=== PATIENT | female | born 1990 | race Caucasian/White ===

== ENCOUNTER 2017-11-14 17:27 | Day surgery (SDC) | payer OTHER ==
[~2017-11-14] VITALS: Ht 160 cm; Wt 104.2 kg
--- NOTE | 2017-11-14 17:44 | ED PDOC ---
Post-Departure Follow-Up patient seen by Dr. Alatorre upon arrival - not seen by ED provider Alexandra Avelar MD Nov 14, 2017 17:44
[2017-11-14] MEDS ORDERED: LR 1,000 ML IV SCH ×2 (17:45→23:52)
[2017-11-14 19:26] LABS: ANION GAP 7 MEQ/L (8-16); BLOOD UREA NITROGEN 15 MG/DL (7-18); CALCIUM LEVEL 8.7 MG/DL (8.5-10.1); CARBON DIOXIDE LEVEL 27 MEQ/L (21-32); CHLORIDE LEVEL 103 MEQ/L (98-107); CREATININE FOR GFR 0.49 MG/DL (0.55-1.02); GLOMERULAR FILTRATION RATE > 60.0 (>60); GLUCOSE, FASTING 69 MG/DL (70-105); POTASSIUM SERUM 3.9 MEQ/L (3.5-5.1); SODIUM LEVEL 137 MEQ/L (136-145)
[2017-11-14 20:24] LABS: MEAN CORPUSCULAR HEMOGLOBIN 30.9 pg (27.0-33.0); MEAN CORPUSCULAR HGB CONC 34.9 g/dl (32.0-36.5); MEAN CORPUSCULAR VOLUME 88.6 fl (80.0-96.0); PLATELET COUNT, AUTOMATED 228 10^3/uL (150-450); RED CELL DISTRIBUTION WIDTH 12.1 % (11.5-14.5); WHITE BLOOD COUNT 8.6 10^3/uL (4.0-10.0)
[2017-11-14] MEDS ORDERED: LIDOCAINE 2% INJ 100 MG/5 ML SYRINGE As Ordered ONE (21:51)
[2017-11-14] MEDS ORDERED: MIDAZOLAM INJ 2 MG/2 ML VIAL (J2250) As Ordered ONE (21:51)
[2017-11-14] MEDS ORDERED: NEOSTIGMINE 10 MG/10 ML VIAL (J2710) As Ordered ONE (21:51)
[2017-11-14] MEDS ORDERED: fentaNYL 100 MCG/2 ML INJECTION (J3010) As Ordered ONE ×2 (21:51→23:47)
[2017-11-14] MEDS ORDERED: KETOROLAC 60 MG/2 ML VIAL (J1885) As Ordered ONE (21:51)
[2017-11-14] MEDS ORDERED: ONDANSETRON 4MG/2ML VIAL (J2405) As Ordered ONE (21:51)
[2017-11-14] MEDS ORDERED: GLYCOPYRROLATE INJ 0.2 MG/ML 2 ML VIAL As Ordered ONE (21:51)
[2017-11-14] MEDS ORDERED: dexameTHASONE 4 MG/ML 1ML VIAL (J1100) As Ordered ONE (21:51)
[2017-11-14] MEDS ORDERED: PROPOFOL 200 MG/20 ML VIAL As Ordered ONE (21:51)
[2017-11-14] MEDS ORDERED: ROCURONIUM BROMIDE 50 MG/5 ML VIAL As Ordered ONE ×2 (21:51→22:51)
[2017-11-14] MEDS ORDERED: MORPHINE 10 MG/ML 1ML VIAL As Ordered ONE (22:08)
[2017-11-15] MEDS ORDERED: MORPHINE 10 MG/ML 1ML VIAL IV PRN (00:15)
[2017-11-15] MEDS ORDERED: LR 1,000 ML IV SCH (00:15)
[2017-11-15] MEDS ORDERED: PERCOCET 5MG/325MG TAB PO PRN ×3 (00:15)
[2017-11-15] MEDS ORDERED: ONDANSETRON 4MG/2ML VIAL (J2405) IV PRN ×2 (00:15)
[2017-11-15] MEDS ORDERED: fentaNYL 100 MCG/2 ML INJECTION (J3010) IV PRN (00:15)
[2017-11-15 01:30] VITALS: BP 127/65
[2017-11-15 02:00] VITALS: BP 122/62
[2017-11-15 02:30] VITALS: BP 125/70
[2017-11-15 04:00] VITALS: BP 130/72
[2017-11-15] MEDS ORDERED: KETOROLAC 30 MG/ML VIAL (J1885) IV SCH ×2 (06:00)
[2017-11-15] MEDS ORDERED: DOCUSATE SODIUM 100 MG CAP PO SCH (09:00)
[2017-11-15] MEDS ORDERED: OXYC1TAB23 PO ×2 (14:44→18:28)
[2017-11-15] MEDS ORDERED: IBUP-1114 PO (14:44)
[2017-11-15] MEDS ORDERED: COLA100C5 PO (14:46)
[2017-11-15] MEDS ORDERED: PROAAER10 INH (18:28)
[2017-11-15] MEDS ORDERED: E-ZMIS3 XX (18:28)
--- NOTE | 2017-11-20 20:50 | RO ---
DATE OF PROCEDURE: 11/14/2017 PREOPERATIVE DIAGNOSIS: Right adnexal ectopic . POSTOPERATIVE DIAGNOSIS: Right ovarian ectopic . OPERATIVE PROCEDURE: Operative laparoscopy with eventual right oophorectomy. SURGEON: Ministerio Alatorre MD BRIMMER BLOCKER: Suzy Anglin MD ANESTHESIA: General endotracheal. ESTIMATED BLOOD LOSS: 200 mL or organized clot, all removed. DRAINS: 500 mL of clear urine in the Miller catheter. FLUID REPLACEMENT: 1800 mL of lactated Ringer's. PREOPERATIVE ANTIBIOTICS: None. SPECIMENS: Right ovary with obvious right ectopic . FINDINGS: Omental adhesions from her prior laparoscopic cholecystectomy, normal tubes bilaterally, 4 cm simple cyst on the left ovary, obvious right ovarian ectopic . INDICATION: Patient was seen on 11/14/2017 in the clinic for a routine first trimester ultrasound to confirm due date when the scan was noted to be obviously abnormal. The scan was repeated formally at [facility], and they found a right adnexal ectopic with a measurable pole and heart rate of 141. Counseled and consented to undergo operative laparoscopy and likely removal of the right fallopian tube. DESCRIPTION OF PROCEDURE: Patient was taken to the operating room after informed consent was obtained, and general endotracheal anesthesia was easily obtained. She was placed in dorsal lithotomy position, and a gentle exam under anesthesia was performed. This was normal without either fullness on right or left ovary noticeable, however, also limited due to her obesity. She was prepped and draped in normal sterile fashion. I placed a Hulka uterine manipulator without difficulty for need for cervical dilatation. I then placed a Miller catheter, changed my gloves and turned my attention to the abdomen. The table was brought all the way down to waist level and flattened out. Just under the umbilicus she was injected with approximately 3 mL of 0.25% Marcaine, no epinephrine. A small 5 mm incision just under the umbilicus was made and the trocar was placed into the abdomen directly with visualization of each layer. Intraperitoneal access was confirmed. When CO2 was started at low then changed to high, we placed the patient in Trendelenburg and immediately noted the presence of the significant hemoperitoneum. We placed a right lower quadrant trocar under direct visualization in the exact same manner, this being a 5 mm in size. We then placed a left lower quadrant trocar in the same manner under direct visualization, this being a 10 mm trocar. There was an omental adhesion just below the infraumbilical port site that we were able to move the camera around to directly see into the pelvis. We did not need to remove this omental adhesion. With all ports in place, elevated the uterus using the uterine manipulator and we carefully evaluated each fallopian tube, squeezing the fallopian tube throughout from the proximal to the distal course of the fallopian tube with an atraumatic grasper. There was no mass or abnormality present on either fallopian tube. Both myself and Dr. Anglin performed this maneuver and we were both confident that both fallopian tubes were normal with no ectopic within either. We then elevated the ovaries. There was a known 4 cm cyst on the left ovary which was simple in nature and not addressed today. Elevating the right ovary, which was approximately the same size as the left ovary, we were able to see an area of hemorrhage at the lower dependent portion of the ovary, which I grasped and it immediately started to bleed and had what looked to be like chorionic villi underneath. We then proceeded to talk about removal of the obvious ovarian ectopic via cystectomy pr partial oophorectomy to attempt ovarian conservation, however, the area that we had grasped was bleeding briskly and due to the fact that ovarian ectopics are rarely able to have a salvaged ovary at the end of the procedure, we decided to remove the entire ovary to prevent hemorrhage and also to prevent the likely occurrence of a recurrent ectopic tissue growth. We easily elevated the ovary identified the infundibulopelvic ligament, identified the ureter, and with ligature, cauterized and cut the IP ligament. We then placed the ovary into an Endo Catch bag and drained the cystic portion of as much fluid as possible using the rigid sharp fluid extractor. There was never fear of spillage outside of the bag. We were very careful to avoid any and all abdominal and pelvic structures other than the right ovary. We were able to shrink its size significantly with approximately 30 mL of fluid removed from the ovary. I then removed the bag up to the level of the 10 mm trocar site. It was too big to fit, therefore I extended the trocar site approximately 5 mm and we were able to coax the bag intact through the enlarged incision. With my finger, I plugged the trocar site, confirmed hemostasis throughout. We then with the suction director operations broadcast removed what was left of the organized clot. Most of the organized clot had been previously removed with the suction director operations broadcast prior to addressing the actual fallopian tubes and finding the right ovarian ectopic . Hemostasis was noted at the operative site. Both remaining 5 mm trocars were then removed under direct visualization. Pneumoperitoneum easily escaped through the left lower quadrant enlarged incision. The fascia of this incision was grasped in both apices with dual os clamps and using UR6 #0 Vicryl we closed the fascial incision without difficulty. Using my digit, I was able to confirm it was in fact closed. I then also closed the subcutaneous fat over the fascial incision and closed the skin incision with #4-0 Monocryl subcuticular stitch. Dermabond was placed over all three incisions and all instruments were removed from the vagina. A small amount of cautery was needed at the tenaculum site to obtain hemostasis. The patient was taken out of lithotomy and awakened from general anesthesia without difficulty and transferred to the PACU in stable condition. She will be watched overnight, likely discharged in the morning. The patient will be seen in 1 to 2 weeks in the clinic, at which time we will talk about control options and also review the need for weekly hCG values to document resolution of the ectopic . All counts were correct throughout and after the case and photo documentation was obtained throughout the case as well. [place]
== END 2017-11-15 04:30 | disposition home or self-care (01) ==
LOC: M ED 17:27 → M SDC 17:30 → M PED 11-15 01:25 → M SDC 11-15 04:30
PROVIDERS: ATTEND Obstetrics & Gynecology
DX: O00.201 Right ovarian pregnancy without intrauterine pregnancy (principal); Z72.0 Tobacco use
CPT/HCPCS: 36415; 59151; 80048; 85027; 86850; 86900; 86901; 99284; J1100; J1885; J2250; J2405; J2710; J3010

== ENCOUNTER → 2017-11-14 | Outpatient (CLI) | payer OTHER ==
[~2017-11-14] MED LIST: BUPIVACAINE HCL 0.25% 30 ML VIAL As Ordered ONE; COLA100C5 PO; E-ZMIS3 XX; IBUP-1114 PO; LR 1,000 ML IV SCH; MORPHINE 10 MG/ML 1ML VIAL IV PRN; ONDANSETRON 4MG/2ML VIAL (J2405) IV PRN; OXYC1TAB23 PO; PERCOCET 5MG/325MG TAB PO PRN; PROAAER10 INH; SILVER NITRATE APPLICATOR As Ordered ONE; fentaNYL 100 MCG/2 ML INJECTION (J3010) IV PRN
--- NOTE | 2017-11-15 06:40 | REP ---
FIRST TRIMESTER ULTRASOUND: Real-time sonographic evaluation of the pelvis performed. Transabdominal and endovaginal technique is utilized. Uterus measures 8.7 x 4.9 x 5.9 cm. A small amount of endometrial fluid is seen. A live ectopic is seen in the right adnexa. Gestational sac contains a pole with a length of 5 mm corresponding to an estimated gestational age of 6 weeks 2 days. heart rate is 141 beats per minute. The right ovary itself measures 5.2 x 5.2 x 4.6 cm and contains a complex cyst 4.2 x 4.3 x 4.1 cm. Left ovary is also enlarged 4.9 x 5.0 x 3.8 cm and contains a cyst 4.1 x 4.4 x 3.8 cm. There is no evidence of ovarian torsion bilaterally, with blood flow seen in each ovary with duplex Doppler evaluation, RI right ovary 0.46 and left ovary 0.48. There is mild free fluid. IMPRESSION: Live right adnexal ectopic as discussed in detail above. Bilateral ovarian cysts with no torsion. Mild free fluid. Tiny amount of fluid in the endometrial canal. Signed by Ministerio Santizo MD 11/15/2017 08:33 P
== END ==
LOC: M LAB 10:35
PROVIDERS: ATTEND Obstetrics & Gynecology
DX: O00.101 Right tubal pregnancy without intrauterine pregnancy (principal); Z3A.01 Less than 8 weeks gestation of pregnancy

== ENCOUNTER 2017-11-15 14:35 | Emergency (ER) | payer OTHER ==
[~2017-11-15] VITALS: Ht 160 cm; Wt 104.5 kg
[2017-11-15] MEDS ORDERED: OXYC1TAB23 PO ×2 (14:44→18:28)
[2017-11-15] MEDS ORDERED: IBUP-1114 PO (14:44)
[2017-11-15] MEDS ORDERED: COLA100C5 PO (14:46)
[2017-11-15] MEDS ORDERED: MORPHINE 4 MG/ML 1ML SYRINGE IV ONE (15:30)
[2017-11-15 16:47] LABS: ALBUMIN 3.7 GM/DL (3.2-5.2); ALBUMIN/GLOBULIN RATIO 1.28 (1.00-1.93); ALKALINE PHOSPHATASE 42 U/L (45-117); ALT/SGPT 32 U/L (12-78); ANION GAP 7 MEQ/L (8-16); AST/SGOT 16 U/L (7-37); BILIRUBIN,TOTAL 0.6 MG/DL (0.2-1.0); BLOOD UREA NITROGEN 10 MG/DL (7-18); CALCIUM LEVEL 8.7 MG/DL (8.5-10.1); CARBON DIOXIDE LEVEL 28 MEQ/L (21-32); CHLORIDE LEVEL 104 MEQ/L (98-107); CREATININE FOR GFR 0.61 MG/DL (0.55-1.02); GLOMERULAR FILTRATION RATE > 60.0 (>60); GLUCOSE, FASTING 101 MG/DL (70-105); HCG, SERUM QUANTITATIVE 3538 MIU/ML; POTASSIUM SERUM 4.1 MEQ/L (3.5-5.1); SODIUM LEVEL 139 MEQ/L (136-145); TOTAL PROTEIN 6.6 GM/DL (6.4-8.2)
[2017-11-15 17:03] LABS: BASO % 0.2 % (0.0-1.0); EOS % 0.3 % (0.0-3.0); IMMATURE GRANULOCYTE % 0.3 % (0-0); LYMPH # 1.8 10^3/uL (1.5-6.5); LYMPH % 15.4 % (24.0-44.0); MEAN CORPUSCULAR HGB CONC 34.8 g/dl (32.0-36.5); MONO # 0.8 10^3/uL (0.0-0.8); NEUTROPHILS % 76.8 % (36.0-66.0); PLATELET COUNT, AUTOMATED 236 10^3/uL (150-450); RED CELL DISTRIBUTION WIDTH 12.2 % (11.5-14.5); WHITE BLOOD COUNT 11.7 10^3/uL (4.0-10.0)
[2017-11-15] MEDS ORDERED: PERCOCET 5MG/325MG TAB PO ONE (17:30)
[2017-11-15] MEDS ORDERED: ALBUTEROL SULFATE 2.5 MG/0.5 ML INH NEB SOLN NEB ONE (18:00)
[2017-11-15] MEDS ORDERED: E-ZMIS3 XX (18:28)
[2017-11-15] MEDS ORDERED: PROAAER10 INH (18:28)
[2017-11-15 18:35] VITALS: BP 117/64
== END 2017-11-15 18:36 | disposition home or self-care (01) ==
LOC: M ED 14:35
DX: R10.31 Right lower quadrant pain (principal); G89.18 Other acute postprocedural pain; R06.2 Wheezing

== ENCOUNTER → 2017-12-14 | Outpatient (CLI) | payer OTHER ==
[2017-12-14 12:50] LABS: HCG, SERUM QUANTITATIVE < 1.0 MIU/ML
== END ==
LOC: M LAB 11:19
DX: Z71.9 Counseling, unspecified (principal)
CPT/HCPCS: 84702

== ENCOUNTER → 2018-01-08 | Outpatient (CLI) | payer OTHER ==
[2018-01-08 17:50] LABS: HCG, SERUM QUANTITATIVE < 1.0 MIU/ML
== END ==
LOC: M LAB 16:17
DX: N83.202 Unspecified ovarian cyst, left side (principal)

== ENCOUNTER 2018-01-23 11:34 | Emergency (ER) | payer SELFPAY, OTHER ==
[2018-01-23 13:24] LABS: KETONE, URINE AUTO RFX NEGATIVE (NEGATIVE); LEUKOCYTE ESTERASE UR AUTO RFX NEGATIVE (NEGATIVE); MUCUS, URINE RFX SMALL (NEGATIVE); NITRITE, URINE AUTO RFX NEGATIVE (NEGATIVE); RBC, URINE AUTO RFX 1 /HPF (0-3); SPECIFIC GRAVITY UR AUTO RFX 1.019 (1.002-1.035); SQUAM EPITHELIAL CELL UR AURFX 0 /HPF (0-6); WBC, URINE AUTO RFX 0 /HPF (0-3)
[2018-01-23 13:54] LABS: BASO % 0.5 % (0.0-1.0); EOS # 0.1 10^3/uL (0.0-0.50); EOS % 1.8 % (0.0-3.0); HEMATOCRIT 41.6 % (36.0-47.0); HEMOGLOBIN 14.4 g/dl (12.0-16.0); IMMATURE GRANULOCYTE % 0.2 % (0-3.0); LYMPH % 33.8 % (24.0-44.0); MEAN CORPUSCULAR HEMOGLOBIN 30.4 pg (27.0-33.0); MEAN CORPUSCULAR HGB CONC 34.6 g/dl (32.0-36.5); MEAN CORPUSCULAR VOLUME 87.8 fl (80.0-96.0); MONO # 0.6 10^3/uL (0.0-0.8); MONO % 9.1 % (0.0-5.0); NEUTROPHILS # 3.3 10^3/uL (1.8-7.7); NEUTROPHILS % 54.6 % (36.0-66.0); PLATELET COUNT, AUTOMATED 250 10^3/uL (150-450); RED BLOOD COUNT 4.74 10^6/uL (4.00-5.40)
[2018-01-23 14:20] LABS: HCG, SERUM QUANTITATIVE 831 MIU/ML
== END 2018-01-23 15:22 | disposition home or self-care (01) ==
LOC: M ED 11:34
DX: O34.81 Maternal care for other abnormalities of pelvic organs, first trimester (principal); N83.202 Unspecified ovarian cyst, left side; Z3A.01 Less than 8 weeks gestation of pregnancy; O34.219 Maternal care for unspecified type scar from previous cesarean delivery; Z87.891 Personal history of nicotine dependence; Z90.721 Acquired absence of ovaries, unilateral
CPT/HCPCS: 76801

== ENCOUNTER → 2018-01-25 | Outpatient (CLI) | payer SELFPAY ==
[2018-01-25 19:39] LABS: HCG, SERUM QUANTITATIVE 2181 MIU/ML
== END ==
LOC: M LAB 18:22
DX: R10.32 Left lower quadrant pain (principal)

== ENCOUNTER → 2018-01-28 | Outpatient (CLI) | payer SELFPAY | LOC: M RAD 08:51 | DX: O26.891 Other specified pregnancy related conditions, first trimester (principal); R10.32 Left lower quadrant pain; O34.80 Maternal care for other abnormalities of pelvic organs, unspecified trimester; N83.202 Unspecified ovarian cyst, left side; Z3A.00 Weeks of gestation of pregnancy not specified | CPT/HCPCS: 76801 ==